=== PATIENT | female | born 1955 | race Caucasian/White ===

== ENCOUNTER 2020-05-23 09:16 | Outpatient (CLI) | payer BC, SELFPAY ==
--- NOTE | 2020-05-23 09:33 | US_ITS ---
WS: [id number] THYROID ULTRASOUND (TI-RADS CRITERIA) History: Diffuse thyroid goiter.. Technique: Ultrasound examination of the thyroid and adjacent soft tissues is performed. FINDINGS: Right lobe: 3.5 cm x 1.6 cm x 1.4 cm. Volume: 4.1 cm3. Mildly enlarged thyroid. There is a dominant large nodule filling the large portion of the RIGHT thyr oid. There is moderate increased vascularity surrounding the nodule. Left lobe: 2.6 cm x 0.7 cm x 0.8 cm. Volume: 0.7 cm3. Small caliber atrophic LEFT thyroid lobe. Isthmus: 0.3 cm. Estimated total number of nodules greater than or equal to 1 cm: 1 Number of spongiform nodules greater than or equal to 2 cm not described below (TR1): 0 Number of mixed cystic and solid nodules greater than or equal to 1.5 cm not described below (TR2): 0 NODULE: RIGHT, #1. Size: 1.6 x 1.3 x 2.5 cm. Location: Mid RIGHT but extends to involve the upper and lower poles. Composition: Solid/almost completely solid (2) Echogenicity: Hypoechoic (2) Shape: Not taller than wide (0) Margins: Smooth (0) Echogenic foci: None (0) ACR TI-RADS total points: 4 ACR TI-RADS risk category: TR 4 US/US thyroid 44986 Impression: TR 4 Recommendation:Ultrasound-guided fine-needle aspiration RIGHT thyroid nodule. RIGHT thyroid nodule replaces the majority of the RIGHT thyroid. This may be a goiter but neoplasm is not excluded.
== END 2020-05-23 09:17 | disposition home or self-care (01) ==
PROVIDERS: PCP Family Medicine; Visit Provider Family Medicine
DX: E04.0 Nontoxic diffuse goiter (principal)
CPT/HCPCS: 76536

== ENCOUNTER 2021-08-08 12:04 | Outpatient (CLI) | payer BC, SELFPAY ==
--- NOTE | 2021-08-08 12:10 | US_ITS ---
WS: [id number] THYROID ULTRASOUND HISTORY: DIFFUSE THYROID GOITER W/O THYROTOXICOSIS COMPARISON: 05/23/2020 Right lobe: 1.5 cm x 1.5 cm x 4.3 cm (w x ap x l). Volume: 5.1 cm3. Minimally prominent thyroid lobe. Gland is mildly heterogeneous with a small hypoechoic mixed nodule in the lower pole. Superior to the thyroid in the region of the submandibular gland is a hypoechoic mass which is lobula lyndon measuring 4.3 x 2.0 x 3.5 cm. This appears separate from the thyroid. Left lobe: 0.6 cm x 0.8 cm x 2.9 cm (w x ap x l). Volume: 0.7 cm3. Very small atrophic gland. Isthmus: 0.4 cm. US/US thyroid 24250 IMPRESSION: 1. Palpable area in the RIGHT neck is thought to correspond to the submandibul ar gland and not the thyroid. On the prior examination this heterogeneous area was thought to be the thyroid. Findings and the location of this nodule needs t o be confirmed. Recommend follow-up neck CT with IV contrast. This will help id entified whether this lobulated mass is within the thyroid or the submandibular gland. 2. Small atrophied LEFT thyroid.
== END 2021-08-08 12:05 | disposition home or self-care (01) ==
LOC: RAD 12:05
PROVIDERS: PCP Family Medicine; Visit Provider Family Medicine
DX: E04.0 Nontoxic diffuse goiter (principal)
CPT/HCPCS: 76536

== ENCOUNTER 2021-09-13 11:19 | Outpatient (CLI) | payer BC, SELFPAY ==
--- NOTE | 2021-09-13 11:38 | CT_ITS ---
WS: [id number] CT NECK TECHNIQUE: Contrast-enhanced CT of the neck with coronal and sagittal reformatted images.Images of th e tongue base are degraded due to dental artifact. CLINICAL INFORMATION: DIFFUSE THYROID GOITER W/O THYROTOXICOSIS COMPARISON: Ultrasound thyroid August 08, 2021 DLP: 236.[address] scans at [facility] use at least one of these dose optimization techniques: automated e xposure control; mA and/or kV adjustment per patient size (includes targeted exams where dose is matc hed to clinical indication); or iterative reconstruction. FINDINGS:Heterogeneously enhancing mass involving the RIGHT submandibular space extending deep to the mandible. Associated mass effect on the genioglossus, mylohyoid and anterior belly of the digastric. This abuts the RIGHT tongue base and root of the tongue with loss of the normal fat plane. This abut s the RIGHT hyoid bone inferiorly. Ovoid mass measures approximately 3.1 x 2.5 x 3.2 CM AP by transve rse by craniocaudal. Associated mass effect on the RIGHT submandibular gland. Submandibular gland pos teriorly and inferiorly displaced. Mastoid air cells are well aerated. Mild mucosal thickening ethmoid air cells. Normal posterior nasop harynx. Lung apices are well aerated. Normal vallecula and epiglottis. Normal piriform sinuses. No evidence o f glottic mass. Subglottic airway is normal. Normal parotid glands. LEFT submandibular gland is normal. Partially visualized intracranial contents appear normal. Moderat e spondylitic changes cervical spine with mild central canal stenosis C4-C6 with disc osteophyte comp lexes. CT/CT neck w con* [id number] IMPRESSION: 1. Heterogeneously enhancing solid ovoid mass in the RIGHT submandibular space anterior to the submandibular gland extending deep to the mandible. This is co mpatible with neoplasm. This abuts the base of the tongue on the RIGHT. Loss of the normal fat plane. Recommend further evaluation with ENT consultation for r esection. 2. RIGHT thyroid nodularity unchanged since the ultrasound. 3. Mild central canal stenosis C4-C6 due to disc osteophyte complexes.
[2021-09-13 13:29] LABS: Blood Urea Nitrogen 14 mg/dL (8-23); Glomerular Filtration Rate 84.2 mL/min (90-130)
== END 2021-09-13 11:20 | disposition home or self-care (01) ==
LOC: RAD 11:21
PROVIDERS: PCP Family Medicine; Visit Provider Family Medicine
DX: E04.0 Nontoxic diffuse goiter (principal); M48.02 Spinal stenosis, cervical region
CPT/HCPCS: 70491; 82565; 84520

== ENCOUNTER 2021-10-01 08:58 | Outpatient (CLI) | payer BC, SELFPAY ==
[2021-10-01 09:38] LABS: Basophils # 0.1 10^3/uL (0.0-0.1); Basophils % 1.5 %; Eosinophils # 0.1 10^3/uL (0.0-0.8); Eosinophils % 1.1 %; Hematocrit 43.1 % (37.0-47.0); Hemoglobin 14.7 g/dL (11.5-15.3); Lymphocytes # 1.6 10^3/uL (0.8-4.8); Lymphocytes % 34.2 %; Mean Corpuscular HGB Conc 34.1 g/dL (30.0-36.0); Mean Corpuscular Hemoglobin 28.8 pg (28.0-34.0); Mean Corpuscular Volume 84.5 fl (81-99); Mean Platelet Volume 9.7 fL (7.4-10.4); Monocytes # 0.5 10^3/uL (0.2-0.9); Monocytes % 10.6 %; Neutrophils # 2.37 10^3/uL (1.8-7.7); Neutrophils % 52.4 %; Nucleated Red Blood Cells % 0 %; Platelet Count 227 10^3/cmm (130-400); Red Cell Distribution Width 11.9 % (12.1-15.1); White Blood Count 4.5 10^3/uL (4.0-10.0)
--- NOTE | 2021-10-01 09:49 | ECG_ITS ---
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 Measurements Intervals [place] Rate: P: AL: QRS: QRSD: T: QT: QTc: Interpretive Statements Sinus bradycardia with a rate of 50 bpm Poor R wave progression ATYPICAL ECG WARNING: DATA QUALITY MAY AFFECT INTERPRETATION INTERPRETATION BASED ON A DEFAULT AGE OF 40 YEARS No previous ECG available for comparison Electronically Signed On 10-01-2021 20:12:35 CDT by Vin Kingsley M.D. [email or web address]
[2021-10-01 10:02] LABS: Anion Gap 14.3 (5-19); Blood Urea Nitrogen 12 mg/dL (8-23); Calcium 9.1 mg/dL (8.5-10.5); Carbon Dioxide 25 mmol/L (22-29); Chloride 104 mmol/L (98-107); Glomerular Filtration Rate 100.6 mL/min (90-130); Glucose 97 mg/dL (65-115); Osmolality Calculated 288 mOsm/kg (285-295); Potassium 4.3 mmol/L (3.5-5.1); Sodium 139 mmol/L (136-145)
== END 2021-10-01 08:59 | disposition home or self-care (01) ==
LOC: LAB 09:01
PROVIDERS: PCP Family Medicine; Visit Provider Specialist
DX: R22.0 Localized swelling, mass and lump, head (principal)
CPT/HCPCS: 80048; 85025; 93005

== ENCOUNTER 2021-11-05 14:28 | Observation (INO) | payer BC, SELFPAY ==
[2021-11-04 13:29] VITALS: BMI 30.7
[2021-11-05] VITALS (14 sets, daily range): BP systolic 132–164; BP diastolic 60–86; PULSE 66–91; RESP 12–18; TEMP 36.1–36.8; O2SAT 94–98; BMI 30.7
[2021-11-05] MEDS: sodium chloride 0.9% 1,000 ML 30 ML IV (08:34)
--- NOTE | 2021-11-05 08:47 | ANES.PREANE2 ---
Pre-Anesthetic Assessment Height/Weight: Height 1.47 m Weight 66.678 kg Temp Pulse Resp BP Pulse Ox O2 Del Method 98.0 F 66 18 163/86 97 11/05/21 08:18 11/05/21 08:18 11/05/21 08:18 11/05/21 08:18 11/05/21 08:18 11/05/21 08:21 Operation Date: 11/05/21 09:30 Proposed Procedures p Excision of Right Submandibular mass, poss right neck dissection 10979,53966,R22.0(Right) - Melvin Winkler MD Familial anesthetic complications: None Was Beta Raymond taken within 24 hours: N/A Was Clonidine taken within 24 hours: N/A Last intake: Intake Last Liquid Date 11/04/21 Last Liquid Time 22:00 Last Solid Date 11/04/21 Last Solid Time 22:00 Social No alcohol and No tobacco Exam alert, oriented x 3, clear to auscultation bilaterally and regular rate & rhythm Airway Submandibular: within normal limits Cervical ROM: within normal limits Mallampati: Class II Dentition: full Metabolic Thyroid Disease Anesthetic Plan ASA status: 2 Anesthesia: General Medications/Allergies Home Medications Medication Instructions Recorded Confirmed Last Taken Type azelaic acid 15 % topical gel 1 applic topical BID PRN rosacea 11/04/21 11/05/21 11/04/21 History (Finacea) levothyroxine 88 mcg tablet 88 mcg PO DAILY 11/04/21 11/04/21 Unknown History (Synthroid) Allergies Allergy/AdvReac Type Severity Reaction Status Date / Time sulfamethoxazole Allergy ADR-Itching Verified 11/04/21 13:17 [From Bactrim] trimethoprim [From Bactrim] Allergy ADR-Itching Verified 11/04/21 13:17 Current Medications Generic Name Dose Route Start Last Admin Trade Name Freq PRN Reason Stop Dose Admin Sodium Chloride 1,000 mls @ 30 mls/hr 11/05/21 08:15 11/05/21 08:34 Sodium Chloride 0.9% IV 11/06/21 08:14 30 mls/hr .Q24H GOPI Administration PFSH Anesthesia Social History (Updated 11/04/21 @ 13:27 by Marissa Schuster) Smoking and tobacco status: never smoked Second hand smoke exposure: No Data Anesthesia Cardiac Studies: No Data to Display
--- NOTE | 2021-11-05 09:46 | W.PM.OPSUD ---
Surgery/Procedure H&P Update DATE OF PROCEDURE: November 05, 2021 DATE H&P PERFORMED: 10/25/21 H&P UPDATE INFORMATION: I have reviewed H&P completed within last 30 days, I have examined patient prior to procedure and No changes to prior documentation PREOP DIAGNOSIS: Right submandibular mass PLANNED PROCEDURE: Operation Date: 11/05/21 09:30 Proposed Procedures p Excision of Right Submandibular mass, poss right neck dissection [id number],R22.0(Right) - Melvin Winkler MD
[2021-11-05] MEDS: ceFAZolin 2,000 MG in sodium chloride 0.9% (plus) 50 ML 100 MG IV ×2 (09:56→17:23)
[2021-11-05] MEDS: ceFAZolin 1,000 mg SDV 1000 MG IRRIGATION (10:40)
[2021-11-05] MEDS: neomycin-poly-bacitracin oint 28 gm 1 APPLIC TOPICAL (11:04)
--- NOTE | 2021-11-05 11:27 | SUR.OPER ---
SPECIMEN SENT TO PATHOLOGY (FRESH NO PRESERVATIVE), SPOKE WITH VETO IN PATHOLOGY@[id number]
[2021-11-05] MEDS: thrombin 5,000 unit SDV 5000 UNIT XX (11:44)
--- NOTE | 2021-11-05 12:02 | PM.OP ---
Operative Report Date of procedure: November 05, 2021 Pre-op diagnosis: Preop Diagnosis Right submandibular mass Post-op diagnosis: same Procedure done: Excisional biopsy of right submandibular gland and mass Implants: None Specimens removed/disposition: Right submandibular gland and mass Pathology: Right submandibular gland and mass Surgeon: Melvin Winkler Clearing Distribution Clerk: Ashwin Braden Anesthesia: General Estimated blood loss (mL): 15 IV fluids (mL): 700 Urine output (mL): 200 Complications: None Findings: - Right submandibular gland with attached/associated smooth bordered mass - Normal right sublingual nerve - Normal right hypoglossal nerve - O/W Normal right neck exam Condition: stable Disposition: PACU Brief History: 66 yo wf with a h/o a right submandibular mass who presents for excisional biopsy. Procedure: The patient was identified in the preoperative holding area was taken to the operating where she was placed on the operating table in supine position. Anesthesia was obtained with general endotracheal anesthesia and the table was then turned 180 degrees. A right neck dissection incision was drawn out on the right neck and the portion below the right submandibular triangle was marked out and injected with local anesthesia. The Nirvana nerve monitoring system was placed on the patient and the patient was then prepped and draped in the usual sterile fashion. The right neck incision was made with a #15 blade and was carried down through the subcutaneous tissues until the subplatysmal plane was reached. The dissection proceeded medially until the digastric muscle was identified and skeletonized. The inferior portion of the capsule of the right submandibular gland was incised as was the right facial vein. The right facial vein was then rotated superiorly and the right submandibular gland was dissected free from the surrounding tissues using the Nirvana nerve monitoring system and microbipolar forceps. The marginal mandibular nerve was identified and preserved. The dissection proceeded circumferentially around the right submandibular gland after the mylohyoid muscle was identified and retracted anteriorly. As the dissection proceeded to the deep side of the right submandibular gland, a smooth bordered somewhat irregular mass was attached to the medial aspect of the submandibular gland. This mass was dissected free from the surrounding tissues as well and was removed after controlling bleeding with bipolar forceps. The hypoglossal nerve was identified and preserved. The lingual nerve was also identified and preserved in place. At this point the wound was irrigated with a copious amount of normal saline and the wound was inspected for hemostasis which was found to be adequate. At this point Gelfoam soaked in thrombin was placed in the wound and a drain was placed in the wound. The wound was then closed in layers with interrupted 4-0 Monocryl sutures and subcu and a running 5-0 Monocryl suture in the subcuticular plane. Final closure was accomplished with Dermabond and Steri-Strips. At this point the procedure was terminated and control of the patient was returned to anesthesia where he underwent an uneventful reversal of anesthesia and extubation and was taken to the recovery room in stable condition. There were no operative or anesthetic complications
--- NOTE | 2021-11-05 12:17 | P.PCN_ITS ---
PACU note Narrative: VSS, Good respiratory effort, report to FILAMENT COIL WINDER Exam: awake
--- NOTE | 2021-11-05 12:17 | PM.PACU ---
PACU note Narrative: VSS, Good respiratory effort, report to SCALP TREATMENT OPERATOR Exam: awake
[2021-11-05] MEDS: famotidine 20 mg/2 mL INJ IVP (14:59)
[2021-11-05] MEDS: lactated ringers 1,000 ML 100 ML IV (14:59)
--- NOTE | 2021-11-05 15:57 | ANE.PACU2 ---
Inpatient post-anesthesia follow up: Airway intact: Yes Vital signs: Temperature 98.1 F Pulse Rate 76 Respiratory Rate 18 Blood Pressure 164/72 Pulse Oximetry 94 Oxygen Delivery Me thod Room Air Oxygen Flow Rate Fraction of Inspir ed Oxygen Hydration adequate: Yes Nausea and vomiting: No Pain level: 2 Mental status: Baseline
[2021-11-05] MEDS: docusate sodium 100 mg Capsule PO (17:23)
--- NOTE | 2021-11-05 17:50 | PM.PN ---
Subjective Subjective: 66 yo wf who is night of surgery s/p excisional biopsy of her right submandibular gland/mass. The patient is eating well, speaking well, and has no other c/o. Medications: Reviewed: Yes Vitals/I&O/Wt Last Vital Signs Temp 98.1 F 11/05/21 16:00 Pulse 83 11/05/21 16:00 Resp 17 11/05/21 16:00 BP 138/78 11/05/21 16:00 Pulse Ox 95 11/05/21 16:00 O2 Del Method 11/05/21 16:00 11/05/21 11/05/21 11/05/21 06:59 14:59 22:59 Intake Total 1760 / 1760 Output Total 420 / 420 15 / 435 Balance 1340 / 1340 -15 / 1325 Weight last 48 hrs Weight 66.678 kg Weight 66.678 kg Physical Exam Const: COMMON NORMALS: no acute distress, patient oriented x3 and alert HENMT: COMMON NORMALS: normocephalic, atraumatic and Normal external nose present HEAD & SCALP: normocephalic and atraumatic FACE & SINUS: normal facial exam and other (Facial nerve function intact bilaterally.) NOSE: Normal external nose present MOUTH: Normal oral and palatal mucosa present Eye: COMMON NORMALS: conjunctivae normal and no scleral icterus CONJUNCTIVA: Yes conjunctivae normal Neck/C-Spine: COMMON NORMALS: no lymphadenopathy Resp: COMMON NORMALS: normal respiratory effort, No retractions and No use of accessory muscles Cardio: COMMON NORMALS: regular rhythm and No murmurs present (Cardio) RHYTHM: regular rhythm Extremity: COMMON NORMALS: normal to inspection Neuro: COMMON NORMALS: patient oriented x3 SENSORIUM/ORIENTATION: Yes alert Urinary Catheter Management: Lay: Cath Placed During This Visit: yes, but has since been removed by the nurse Urinary Catheter Date of Insertion: 11/05/21 Urinary Catheter Time of Insertion: 10:15 Date Urinary Catheter Removed: 11/05/21 Time Urinary Catheter Discontinued: 11:41 A&P Assessment and plan (1) Submandibular gland mass: Impression: Doing well s/p excisional biopsy of right submandibular gland/mass Plan: - Overnight observation - Regular diet - Pain control - Anticipate d/c in the am - I will make further recommendations based on the results of the final path Status: Acute Attestations Medical Necessity Statement*: The patient requires overnight observation of her airway. Coding Level of Care Code Acute Human Resource Adviser for Chg Fwd Diagnoses Submandibular gland mass K11.8
[2021-11-05] MEDS: HYDROcodone-acetaminophen 5-325 mg Tablet 1 TAB PO (20:33)
[2021-11-06 00:32] VITALS: BP 118/63; PULSE 84; RESP 17; TEMP 36.7; O2SAT 95
[2021-11-06] MEDS: ceFAZolin 2,000 MG in sodium chloride 0.9% (plus) 50 ML 100 MG IV ×2 (02:09→08:28)
[2021-11-06] MEDS: famotidine 20 mg/2 mL INJ IVP (02:13)
[2021-11-06 04:00] VITALS: BP 114/63; PULSE 84; RESP 16; TEMP 36.7; O2SAT 98
--- NOTE | 2021-11-06 05:02 | PM.PN ---
Subjective Subjective: 66 yo wf who is POD #1 s/p excisional biopsy of a right submandibular gland/mass. The patient reports that she is doing well this morning - she is taking po well, and has minimal post op pain. Medications: Reviewed: Yes Vitals/I&O/Wt Last Vital Signs Temp 98.1 F 11/06/21 04:00 Pulse 84 11/06/21 04:00 Resp 16 11/06/21 04:00 BP 114/63 11/06/21 04:00 Pulse Ox 98 11/06/21 04:00 O2 Del Method 11/05/21 16:00 11/05/21 11/05/21 11/06/21 14:59 22:59 06:59 Intake Total 1760 / 1760 50 / 1810 290 / 2100 Output Total 420 / 420 15 / 435 20 / 455 Balance 1340 / 1340 35 / 1375 270 / 1645 Weight last 48 hrs Weight 66.678 kg Weight 66.678 kg Physical Exam Const: COMMON NORMALS: no acute distress, average body habitus and patient oriented x3 HENMT: COMMON NORMALS: normocephalic and Normal external nose present HEAD & SCALP: normocephalic FACE & SINUS: normal facial exam and other (Facial nerve function intact.) NOSE: Normal external nose present Eye: COMMON NORMALS: EOMs intact bilaterally and no scleral icterus Neck/C-Spine: COMMON NORMALS: no lymphadenopathy GENERAL: Yes other (Right neck wound intact without erythema or swelling. ) Resp: COMMON NORMALS: normal respiratory effort, No use of accessory muscles and clear to auscultation bilaterally AUSCULTATION: clear to auscultation bilaterally Cardio: COMMON NORMALS: regular rate, regular rhythm and No murmurs present (Cardio) RATE: regular rate RHYTHM: regular rhythm GI: COMMON NORMALS: Normal to inspection, nondistended, normoactive bowel sounds present Extremity: COMMON NORMALS: normal to inspection Neuro: COMMON NORMALS: patient oriented x3 Urinary Catheter Management: Lay: Cath Placed During This Visit: yes, but has since been removed by the nurse Urinary Catheter Date of Insertion: 11/05/21 Urinary Catheter Time of Insertion: 10:15 Date Urinary Catheter Removed: 11/05/21 Time Urinary Catheter Discontinued: 11:41 Data Other data: Path Report Pending A&P Assessment and plan (1) Submandibular gland mass: Impression: Doing well POD #1 s/p Excisional biopsy of a right submandibular gland/mass Plan: - D/C to home - Felipe () tabs: take 1-2 tabs po Q5 hours prn pain, #25, NR - Closed suction drainage - F/U in Dr. Winkler's office on 11/08/21 @ 13:00 hours - Notify Dr. Winkler for any problems - Regular diet - Resume all preop medications Status: Acute Attestations Medical Necessity Statement*: The patient required overnight observation of her airway Coding Level of Care Code Acute Plumber Gasfitter for Chg Fwd Diagnoses Submandibular gland mass K11.8
[2021-11-06] MEDS: lactated ringers 1,000 ML 100 ML IV (05:36)
[2021-11-06 07:28] VITALS: BP 136/75; PULSE 57; RESP 13; TEMP 36.7; O2SAT 98
[2021-11-06] MEDS: levothyroxine 88 mcg Tablet PO (08:28)
[2021-11-06] MEDS: docusate sodium 100 mg Capsule PO (08:28)
[2021-11-06 10:10] VITALS: BP 136/75; PULSE 57; RESP 13; TEMP 36.7; O2SAT 98
[2021-11-07 07:30] LABS: Lymphoma Profile (BBPL) See Report
== END 2021-11-06 10:11 | disposition home or self-care (01) ==
LOC: MEDSURG 14:36
PROVIDERS: Admitting Provider Specialist; PCP Family Medicine; Visit Provider Specialist
PROC: (CPT 42440; principal; 2021-11-05 09:30)
DX: K11.8 Other diseases of salivary glands (principal)
CPT/HCPCS: 42440; 12345; 51702; 88184; 88185; 88309; 88342; 94760; G0378; J0330; J0690; J1100; J1170; J2405; J2704; J3010; J3490; J7030

== ENCOUNTER → 2022-06-05 13:18 | Outpatient (BNVA) | payer MEDICARE, SELFPAY | PROVIDERS: PCP Family Medicine; Visit Provider Nurse Practitioner Family | DX: R39.9 Unspecified symptoms and signs involving the genitourinary system (principal); N39.0 Urinary tract infection, site not specified | CPT/HCPCS: 81000; 87077; 87086; 87184 ==

== ENCOUNTER 2022-09-08 13:21 | Outpatient (CLI) | payer MEDICARE, SELFPAY ==
--- NOTE | 2022-09-08 13:40 | XRR_ITS ---
PROCEDURE INFORMATION: Exam: XR Chest Exam date and time: 09/08/2022 1:43 PM Age: 67 years old Clinical indication: Other: Rhonchi in rul TECHNIQUE: Imaging protocol: Radiologic exam of the chest. Views: 2 views. COMPARISON: CT neck w con* [id number] 09/13/2021 12:05 PM FINDINGS: Lungs: There is minimal asymmetric reticular opacity in the right mid lung. There is no consolidation. Pleural spaces: There is no pleural effusion or pneumothorax. Heart/Mediastinum: Cardiomediastinal contours are unremarkable. Bones/joints: Bones are unremarkable. XR/XR chest 2V* [id number] IMPRESSION: Subtle asymmetric opacity in the right mid lung. Nonspecific. Findings could represent scarring, atelectasis, or infection.
== END 2022-09-08 13:22 | disposition home or self-care (01) ==
PROVIDERS: PCP Family Medicine; Visit Provider Family Medicine
DX: R05.9 Cough, unspecified (principal); R91.8 Other nonspecific abnormal finding of lung field
CPT/HCPCS: 71046

== ENCOUNTER → 2023-06-04 15:54 | Outpatient (BNVA) | payer MEDICARE, SELFPAY | PROVIDERS: PCP Family Medicine; Visit Provider Family Medicine | DX: N39.0 Urinary tract infection, site not specified (principal) | CPT/HCPCS: 81000; 87086 ==